=== PATIENT | female | born 1985 | race Caucasian/White ===

== ENCOUNTER 2016-11-13 00:03 | Emergency (ER) | payer MEDICAID, OTHER ==
[~2016-11-13] VITALS: Ht 152.4 cm; Wt 66.0 kg
[2016-11-13 00:11] VITALS: BP 125/75
== END 2016-11-13 08:29 | disposition left against medical advice (07) ==
LOC: ER 08:29
DX: O26.891 Other specified pregnancy related conditions, first trimester (principal); R10.32 Left lower quadrant pain; Z3A.01 Less than 8 weeks gestation of pregnancy; Z53.21 Procedure and treatment not carried out due to patient leaving prior to being seen by health care provider

== ENCOUNTER 2017-07-09 08:19 | Observation (INO) | payer MEDICAID, OTHER ==
[~2017-07-09] VITALS: Ht 152.4 cm; Wt 68.9 kg
[2017-07-09] MEDS ORDERED: IRON-1 PO (08:31)
[2017-07-09] MEDS ORDERED: PNV1TABL76 MT (08:31)
[2017-07-09] MEDS ORDERED: LACTATED RINGERS 1,000 ML IV SCH (09:30)
[2017-07-09] MEDS ORDERED: TERBUTALINE SULFATE 1MG/ML VIAL SUBCUT PRN (09:30)
[2017-07-09] MEDS: TERBUTALINE SULFATE 1MG/ML VIAL SUBCUT PRN ×2 (10:07→11:30)
[2017-07-09 10:11] LABS: CLARITY URINE TURBID (CLEAR); COLOR URINE ORANGE (YELLOW); GLUCOSE URINE NEGATIVE (NEGATIVE); KETONES URINE NEGATIVE (NEGATIVE); LEUKOCYTE ESTERASE URINE 1+ (NEGATIVE); NITRITE URINE NEGATIVE (NEGATIVE); OCCULT BLOOD URINE 3+ (NEGATIVE); PH URINE 5.5 (4.5-8.0); PROTEIN URINE 2+ (NEGATIVE); SPECIFIC GRAVITY URINE 1.027 (1.005-1.030)
== END 2017-07-09 13:05 | disposition home or self-care (01) ==
LOC: L&D 08:19
PROVIDERS: ADMIT Specialist; ATTEND Specialist
DX: O36.8130 Decreased fetal movements, third trimester, not applicable or unspecified (principal); O26.853 Spotting complicating pregnancy, third trimester; Z3A.33 33 weeks gestation of pregnancy
CPT/HCPCS: 76815; 76818; 81001; 96360; 96361; 96372; 99281; G0378; J3105; J7120

== ENCOUNTER 2021-03-20 16:06 | Emergency (ER) | payer MEDICAID, OTHER ==
[~2021-03-20] VITALS: Ht 149.9 cm; Wt 77.0 kg
[~2021-03-20 16:06] MED LIST: IRON-1 PO; PNV1TABL76 MT
[2021-03-20 16:11] VITALS: BP 128/84
[2021-03-20 19:26] LABS: BASOPHILS % 0.7 % (0.0-2.0); EOSINOPHILS % 1.2 % (0.0-5.0); HEMATOCRIT. 36.6 % (36.0-48.0); HEMOGLOBIN. 11.9 g/dL (12.0-16.0); LYMPHOCYTES % 27.1 % (20.0-50.0); MEAN CORPUSCULAR HEMOGLOBIN 28.1 pg (28.0-32.0); MEAN CORPUSCULAR VOLUME 86.4 fL (81.0-99.0); MEAN PLATELET VOLUME 8.7 fl (7.4-10.4); MONOCYTES % 6.9 % (2.0-8.0); NEUTROPHILS % 64.1 % (40.0-76.0); PLATELET 306 x1000/uL (130-400); RED BLOOD CELL COUNT 4.24 mill/uL (4.2-5.4); RED CELL DISTRIBUTION WIDTH 13.8 % (11.6-14.6)
[2021-03-20 19:33] LABS: CHLORIDE 107 mEq/L (98-107)
[2021-03-20 19:35] LABS: HCG SCREEN NEGATIVE
== END 2021-03-20 20:20 | disposition left against medical advice (07) ==
LOC: ER 16:06
DX: N93.8 Other specified abnormal uterine and vaginal bleeding (principal)
CPT/HCPCS: 36415; 80053; 81025; 84703; 85025; 99283

== ENCOUNTER 2021-03-27 20:19 | Emergency (ER) | payer MEDICAID | END 2021-03-27 21:25 | disposition left against medical advice (07) | LOC: ER 20:19 | DX: Z53.21 Procedure and treatment not carried out due to patient leaving prior to being seen by health care provider (principal) ==